=== PATIENT | female | born 1980 | race Caucasian/White ===

== ENCOUNTER 2017-09-10 20:04 | Emergency (ER) | END 2017-09-10 23:45 | disposition home or self-care (01) ==

== ENCOUNTER 2018-06-22 02:06 | Emergency (ER) | END 2018-06-22 05:41 | disposition home or self-care (01) ==

== ENCOUNTER 2018-06-24 18:36 | Emergency (ER) | END 2018-06-24 20:03 | disposition left against medical advice (07) ==